=== PATIENT | male | born 1990 ===

== ENCOUNTER 2016-12-15 09:07 | Emergency (ER) | payer SELFPAY ==
--- NOTE | 2016-12-15 09:21 | UC ---
Lower Extremity/Ankle HPI - HPI Summary HPI Summary: 26 y/o male with pmh of hashimotos on thyroid medication fell while walking on pipes at work. States wrench fell, patient lost balance, falling ~ 2-3 feet on uneven ground. Unsure of mechanism of injury, no other injuries, LOC, head injury. Immediate pain, unable to walk due to sharp pain. No prior ankle injuries other than mild sprains/ strains in past. patient states pain is improving since incident. - History of Current Complaint Chief Complaint: UCLowerExtremity Stated Complaint: ANGLE INJURY Time Seen by Provider: 12/15/16 09:21 Hx Obtained From: Patient Onset/Duration: Sudden Onset Severity Initially: Severe Severity Currently: Moderate Aggravating Factor(s): Standing, Ambulation Alleviating Factor(s): Rest, Elevation, Ice Able to Bear Weight: No - painful - Allergies/Home Medications Allergies/Adverse Reactions: Allergies Allergy/AdvReac Type Severity Reaction Status Date / Time Amoxicillin Allergy Hives Verified 12/15/16 09:13 Penicillins Allergy Hives Verified 12/15/16 09:13 Home Medications: Home Medications Levothyroxine TAB* [Synthroid 75 MCG TAB*] 1 tab PO DAILY 12/15/16 [History Confirmed 12/15/16] PMH/Surg Hx/FS Hx/Imm Hx Previously Healthy: Yes Endocrine History: Thyroid Disease - Surgical History Surgical History: Yes Surgery Procedure, Year, and Place: hernia - Social History Alcohol Use: Weekly Substance Use Type: None Smoking Status (MU): Current Every Day Smoker Type: Smokeless Tobacco Review of Systems Motor: Negative Neurovascular: Negative Musculoskeletal: Arthralgia, Decreased ROM, Myalgia All Other Systems Reviewed And Are Negative: Yes Physical Exam Triage Information Reviewed: Yes Appearance: Well-Appearing, No Pain Distress, Well-Nourished Vital Signs: Initial Vital Signs Temp 97.2 F 12/15/16 09:14 Pulse 89 12/15/16 09:14 Resp 18 12/15/16 09:14 BP 137/87 12/15/16 09:14 Pulse Ox 98 12/15/16 09:14 Vital Signs Reviewed: Yes Eyes: Positive: Conjunctiva Clear Musculoskeletal: Positive: No Edema, Other: - no ecchymosis. tenderness to palpation over lateral mal, none over medial mal, achillies intact, sensation grossly intact to light touch, PROM to ~ 30 degrees with all ankle movements, increased pain with dorsi/plantarflexion, full ROM of L toes. decreased strength due to pain. PT, DP 2+. + tenderness with palpation of posterior 1, 2 metatarsal proximally. Neurological: Positive: Alert, Muscle Tone Normal Psychological Exam: Normal Skin Exam: Normal Lower Extremity Course/Dx - Course Course Of Treatment: radiograph neg for fx, patient unable to weight bear due to pain, crutches given, gel splint. Follow up if no improvement within 48 hours. work note given - Differential Dx/Diagnosis Differential Diagnosis/HQI/PQRI: Contusion, Fracture (Closed), Fracture (Open), Osteomyelitis, Sprain, Strain Provider Diagnoses: Left ankle strain Discharge - Discharge Plan Condition: Good Disposition: HOME Patient Education Materials: Ankle Strain (ED) Forms: *Work Release Referrals: No Primary Care Phys,NOPCP [Primary Care Provider] - Additional Instructions: - Follow up within 2-3 day if no improvement - Rest, ice elevation over next 48 hours - Motrin 600-800mg every 6-8 hours for next 48 hours - gel splint for stabilization
--- NOTE | 2016-12-15 10:11 | RAD ---
HISTORY: Left ankle injury, pain COMPARISONS: None VIEWS: 3, Frontal, lateral, and oblique views of the left ankle FINDINGS: BONE DENSITY: Normal. BONES: There is no displaced fracture. JOINTS: There is no arthropathy. ALIGNMENT: There is no dislocation. SOFT TISSUES: Unremarkable. OTHER FINDINGS: None. IMPRESSION: NO ACUTE OSSEOUS INJURY. IF SYMPTOMS PERSIST, RECOMMEND REPEAT IMAGING.
== END 2016-12-15 10:39 | disposition home or self-care (01) ==
LOC: UCEAST 09:07
DX: S96.912A Strain of unspecified muscle and tendon at ankle and foot level, left foot, initial encounter (principal); W17.89XA Other fall from one level to another, initial encounter; Y93.H3 Activity, building and construction; Y92.9 Unspecified place or not applicable; Y99.0 Civilian activity done for income or pay; E06.3 Autoimmune thyroiditis; Z72.0 Tobacco use
CPT/HCPCS: 99203; G0463